=== PATIENT | male | born 1985 | race Caucasian/White ===

== ENCOUNTER 2016-12-13 14:23 | Emergency (ER) | payer SELFPAY ==
[2016-12-13 14:39] VITALS: BP 130/76; PULSE 60; TEMP 98.4; BMI 30.7
[2016-12-13] MEDS ORDERED: SODIUM CHLORIDE 1,000 ML IV STA (14:54)
[2016-12-13] MEDS ORDERED: NICOTINE 14 MG/24 HOURS TOPICAL PATCH TD ONE (14:55)
[2016-12-13] MEDS ORDERED: METOCLOPRAMIDE HCL INJECTION 10 MG/2 ML VIAL IVPB ONE (15:11)
[2016-12-13 15:15] LABS: BASOPHIL 0.6 % (0-2.0); EOSINOPHIL 4.1 % (0-4.5); MCH 31.3 pg (25.7-33.7); MCHC 33.7 g/dl (32.0-35.9); MEAN CELL VOLUME 92.9 fl (80-96); MEAN PLT VOLUME 9.4 fl (7.5-11.1); NEUTROPHILS 66.6 % (42.8-82.8); PLATELET COUNT 235 K/MM3 (134-434); WHITE BLOOD COUNT 10.5 K/mm3 (4.0-10.0)
[2016-12-13 15:27] LABS: INR 1.11 (0.82-1.09); PROTHROMBIN TIME (PATIENT) 12.5 SEC (9.98-11.88)
--- NOTE | 2016-12-13 15:27 | PDOC ---
History of Present Illness - General Chief Complaint: Headache Stated Complaint: CHEST PAIN History Source: Patient Exam Limitations: No Limitations - History of Present Illness Initial Comments: 12/13/16 15:23 CHIEF COMPLAINT: Chest pain HISTORY OF PRESENT ILLNESS: This is a previously healthy 31 year old male who presents ambulatory to the ED for evaluation of chest pain. He notes that he was previously a 2 pack per day smoker, and over the past several months has slowly cut down to just a few cigarettes per day without the aid of any nicotine replacement therapy. Yesterday was his first day with zero cigarettes. He developed a headache behind his right eye, which he initially attributed to quitting smoking. Today the headache is worse and is associated with blurred vision. He states that he has not had similar headaches in the past. While in tenriism this morning, he developed chest pain and subjective left arm weakness. He denies shortness of breath, cough, dizziness/lightheadedness, ataxia, focal extremity numbness, or any other symptoms. Vital signs on arrival are unremarkable. 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 He has not seen a PCP in many years. He has no known family history of CAD, sudden , stroke, or any other significant conditions. REVIEW OF SYSTEMS: GENERAL/CONSTITUTIONAL: No fever or chills. No weakness. No weight change. HEAD, EYES, EARS, NOSE AND THROAT: Left eye blurred vision. No ear pain or discharge. No sore throat. CARDIOVASCULAR: Chest pain No palpitations. No pleuritic pain. RESPIRATORY: No cough, wheezing, or shortness of breath. GASTROINTESTINAL: No nausea, vomiting, diarrhea or constipation. GENITOURINARY: No dysuria, frequency, or change in urination. MUSCULOSKELETAL: No joint or muscle swelling or pain. No neck or back pain. SKIN: No rash or easy bruising. NEUROLOGIC: Headache, primarily located "behind" left eye with associated blurred vision. No vertigo, loss of consciousness, or loss of sensation. PSYCHIATRIC: No depression or anxiety. ENDOCRINE: No increased thirst. No abnormal weight change. HEMATOLOGIC/LYMPHATIC: No anemia, easy bleeding, or history of blood clots. ALLERGIC/IMMUNOLOGIC: No hives or skin allergy. No latex allergy. PHYSICAL EXAM: GENERAL: The patient is awake, alert, and fully oriented, in no acute distress. HEAD: Normal with no signs of trauma. ENT: Pupils equal, round and reactive to light, extraocular movements intact, sclera anicteric, conjunctiva clear. Neck supple. LUNGS: Clear to auscultation bilaterally. Normal excursion. No respiratory distress or use of accessory muscles. CV: RRR, S1/S2, no MRG. Cap refill < 2 sec. Chest pain not reproducible with movement or palpation. ABDOMEN: Soft, non-distended, non-tender. EXTREMITIES: Normal range of motion, no edema. No calf tenderness. NEUROLOGICAL: Normal speech, normal gait. CN II-XII grossly intact. NIHSS=0. PSYCH: Normal mood, normal affect. SKIN: Warm, dry, normal turgor, no rashes or lesions noted. Past History - Past Medical History Allergies/Adverse Reactions: Allergies Allergy/AdvReac Type Severity Reaction Status Date / Time No Known Allergies Allergy Verified 12/13/16 14:38 Home Medications: Ambulatory Orders Nicotine Patch [Nicoderm Patch -] 1 patch TD DAILY #30 patch 12/13/16 Thyroid Disease: No - Suicide/Smoking/Psychosocial Hx Smoking History: Former smoker Have you smoked in the past 12 months: Yes Number of Cigarettes Smoked Daily: 20 If you are a former smoker, when did you quit?: 12/12/16 Information on smoking cessation initiated: No Hx Alcohol Use: No Drug/Substance Use Hx: No Substance Use Type: Alcohol *Physical Exam - Vital Signs Last Vital Signs Temp Pulse Resp BP Pulse Ox 98.4 F 60 18 130/76 100 12/13/16 14:33 12/13/16 14:33 12/13/16 14:33 12/13/16 14:33 12/13/16 14:33 Heart Score/ECG Review - History History: Slightly suspicious - Electrocardiogram EKG: Normal - Age Age: </= 45 - Risk Factors Risk Factors Heart Score: Yes Smoking History Based on the list above the patient has:: 1-2 risk factors - Troponin Troponin: </= normal limit - Score Heart Score - Total: 1 ED Treatment Course - LABORATORY CBC & Chemistry Diagram: 12/13/16 15:00 12/13/16 15:00 - ADDITIONAL ORDERS Additional order review: 12/13/16 15:00 RBC 4.81 MCV 92.9 MCHC 33.7 RDW 14.0 MPV 9.4 Neutrophils % 66.6 Lymphocytes % 21.4 Monocytes % 7.3 Eosinophils % 4.1 Basophils % 0.6 - RADIOLOGY Radiology Studies Ordered: Category Date Time Status HEAD CT WITHOUT CONTRAST [CT] Stat CT Scan 12/13/16 14:54 Ordered CHEST PA & LAT [RAD] Stat Radiology 12/13/16 14:55 Ordered Medical Decision Making - Medical Decision Making 12/13/16 15:54 A/P: Healthy 31 year old male with headache and chest pain. Complains of left arm weakness, but none appreciated on exam. 1. EKG 2. CXR 3. Cardiac labs 4. HCT 5. IV fluids and Reglan for symptomatic relief 6. Nicoderm patch 7. Re-assess 12/13/16 16:03 CXR: No acute pathology Labs reviewed and are unremarkable including troponin HCT: No acute intracranial process Chest pain resolved Headache improved but still present Will give Toradol 30mg IVP 12/13/16 17:06 Patient re-evaluated and feeling much better, headache resolved. Followup instructions and return precautions reviewed. *DC/Admit/Observation/Transfer Diagnosis at time of Disposition: Atypical chest pain Headache Qualifiers: Headache type: other headache syndrome Qualified Code(s): G44.89 - Other headache syndrome; G44.89 - Other headache syndrome - Discharge Dispostion Disposition: HOME Condition at time of disposition: Stable Admit: No - Referrals Referrals: Reyna Jc MD [Staff Physician] - Call tomorrow (Primary care) - Patient Instructions Printed Discharge Instructions: DI for Migraine, DI for Atypical Chest Pain Additional Instructions: -Rest and stay well-hydrated -Take Tylenol or ibuprofen as needed for pain -Use nicotine patches as prescribed -Follow up with a primary care doctor (referral enclosed) -Return here if your headache or chest pain returns, or if you have any other concerning symptoms Print Language: [place] - Post Discharge Activity Forms/Work/School Notes: Back to Work
[2016-12-13] MEDS ORDERED: METOCLOPRAMIDE HCL INJECTION 10 MG/2 ML VIAL ONE (15:35)
[2016-12-13 15:41] LABS: ALBUMIN 3.9 g/dl (3.4-5.0); ANION GAP 6 (8-16); BILIRUBIN,TOTAL 0.4 mg/dL (0.2-1.0); CALCIUM 8.9 mg/dL (8.5-10.1); CO2 31 mmol/L (21-32); CREATININE 0.9 mg/dL (0.7-1.3); GLUCOSE,RANDOM 80 mg/dL (74-106); SGOT/AST 14 U/L (15-37); SGPT/ALT 26 U/L (12-78); TOT PROT 7.2 g/dl (6.4-8.2)
[2016-12-13 15:44] LABS: ALK PHOS 100 U/L (45-117); CPK 128 IU/L (39-308); TROPONIN I < 0.02 ng/ml (0.00-0.05)
[2016-12-13] MEDS ORDERED: KETOROLAC TROMETHAMINE 30 MG/1 ML VIAL IVPUSH ONE (16:31)
[2016-12-13] MEDS ORDERED: KETOROLAC TROMETHAMINE 30 MG/1 ML VIAL ONE (16:33)
--- NOTE | 2016-12-15 07:14 | EKG ---
Test Reason : Blood Pressure : / mmHG Vent. Rate : 056 BPM Atrial Rate : 056 BPM P-R Int : 142 ms QRS Dur : 088 ms QT Int : 384 ms P-R-T Axes : 065 066 045 degrees QTc Int : 370 ms SINUS BRADYCARDIA OTHERWISE NORMAL ECG NO PREVIOUS ECGS AVAILABLE Confirmed by SP HERNANDEZ MD ([id number]) on 12/15/2016 7:14:20 AM Referred By: Confirmed By:SP HERNANDEZ MD
== END 2016-12-13 17:28 | disposition home or self-care (01) ==
LOC: JERFT 14:23
PROC: 3E0337Z Introduction of Electrolytic and Water Balance Substance into Peripheral Vein, Percutaneous Approach (ICD-10-PCS; principal; 2016-12-13)
PROC: 3E0333Z Introduction of Anti-inflammatory into Peripheral Vein, Percutaneous Approach (ICD-10-PCS; 2016-12-13)
PROC: 3E033GC Introduction of Other Therapeutic Substance into Peripheral Vein, Percutaneous Approach (ICD-10-PCS; 2016-12-13)
DX: R07.89 Other chest pain (principal); G44.89 Other headache syndrome
CPT/HCPCS: 36415; 70450-TC; 71020-TC; 80053; 82550; 84484; 85025; 85610; 87804; 93005; 93010; 99281-25